=== PATIENT | male | born 1970 | race Caucasian/White ===

== ENCOUNTER 2021-03-29 09:42 | Outpatient (CLI) | payer BC, SELFPAY ==
--- NOTE | 2021-03-29 09:52 | XR_ITS ---
WS: [id number] KUB, AP view, 03/29/2021 Clinical Data: KIDNEY STONE Comparison: None. Findings: No abnormal intraabdominal masses or calcifications are seen. There is no dilatated small bowel or ev idence of obstruction. There are phleboliths in the true pelvis. There is a moderate amount of fecal material throughout the colon. XR/XR KUB [id number] Impression: Negative KUB.
== END 2021-03-29 09:43 | disposition home or self-care (01) ==
PROVIDERS: PCP Nurse Practitioner Family; Visit Provider Urology
DX: N20.2 Calculus of kidney with calculus of ureter (principal)
CPT/HCPCS: 74018; 80048; 81003; 82365; 88300